=== PATIENT | male | born 1965 | race American Indian/Alaskan Native ===

== ENCOUNTER 2016-12-28 18:30 | Observation (INO) | payer OTHER ==
--- NOTE | ~2016-12-28 | CR72 ---
[facility]. [facility] A Service [facility] RADIOLOGY TEXT RESULTS PATIENT: ALAN GAINES LOCATION: [facility] : 63 UNIT #: [id number] AGE: [address]: Fernando Koch MD SEX: M ORDER DR: [id number] [place] [address] [id number] I MR#: [id number] Acc #: [id number] NAME: ALAN GAINES : 1965 SEX: M STUDY DATE/TIME: 12/28/2016 19:43 UNIT: SEDOF ROOM: [facility] STUDY DESCRIPTION: CR Chest Single View Portable Attending Physician: Fernando Koch M.D. Ordering Physician: Ranjeet Perdue M.D. Primary Care Physician: Primary Care Physician No MEDICAL IMAGING REPORT This report is preliminary unless electronic signature is present. EXAM Frontal chest, 12/28/2016 INDICATION Chest tightness, dizzy, short of air, arm tingling for a week intermittently. TECHNIQUE Frontal chest compared with 08/17/2011 FINDINGS Cardiac silhouette is within normal limits for technique. Aorta mildly tortuous. Vascularity is normal. There is no effusion, dense consolidation or pneumothorax. Calcified granulomas are present. IMPRESSION Mildly tortuous aorta and old healed granulomatous disease. No definite superimposed active disease. Dictated by... Aamir Mccall M.D. THIS IS AN ELECTRONICALLY VERIFIED REPORT Aamir Mccall M.D. at 12/29/2016 11:41 AM FRED/howard TD: 12/28/2016 23:56 JOB #: [id number] MEDICAL IMAGING REPORT [facility] A Service [facility] RADIOLOGY TEXT RESULTS PATIENT: ALAN GAINES LOCATION: [facility] 5611-18 : 63 UNIT #: [id number] AGE: [address]: Fernando Koch MD SEX: M ORDER DR: Page 1 of 1
--- NOTE | ~2016-12-28 | EKG ---
PATIENT: ALAN GAINES UNIT #: [id number] Ventricular Rate: 85 BPM Atrial Rate: 85 BPM P-R Interval: 154 ms QRS Duration: 94 ms Q-T Interval: 382 ms QTC Calculation(Bezet): 454 ms P Newcomb: 71 degrees Calculated R Newcomb: 24 degrees Calculated T Newcomb: 41 degrees Diagnosis Line: Normal sinus rhythm Diagnosis Line: Incomplete right bundle branch block Diagnosis Line: Borderline ECG Diagnosis Line: When compared with ECG of 17-AUG-2011 22:05, Diagnosis Line: No significant change was found Diagnosis Line: Confirmed by DANIEL PANTOJA MD ([id number]) on 12/29/2016 Diagnosis Line: 10:19:19 PM INTERPRETING MD: KIT QUICK
--- NOTE | ~2016-12-28 | EKG ---
PATIENT: ALAN GAINES UNIT #: [id number] Ventricular Rate: 66 BPM Atrial Rate: 66 BPM P-R Interval: 180 ms QRS Duration: 106 ms Q-T Interval: 402 ms QTC Calculation(Bezet): 421 ms P Chili: 75 degrees Calculated R Chili: 30 degrees Calculated T Chili: 62 degrees Diagnosis Line: Sinus rhythm with Premature ventricular complexes Diagnosis Line: or Fusion complexes Diagnosis Line: Otherwise normal ECG Diagnosis Line: No previous ECGs available Diagnosis Line: Confirmed by DANIEL PANTOJA MD ([id number]) on 12/29/2016 Diagnosis Line: 10:31:43 PM INTERPRETING MD: KIT QUICK
--- NOTE | ~2016-12-28 | DS ---
Unit #: [id number] #: [id number] Patient: ALAN HIDALGO [id number] [address] [address] [id number] I MR#: [id number] NAME: ALAN HIDALGO ROOM: 563 Age: 51 Sex: M Admission Date: 12/28/2016 : 1965 Discharge Date: 12/29/2016 Attending Physician: Fernando Koch M.D. Primary Care Physician: No Primary Care Physician DISCHARGE SUMMARY ADMITTING DIAGNOSES 1. Chest pain and dizziness. 2. COPD. 3. Anxiety. 4. Stress related to socioeconomic issues. 5. Frequent kidney stones. DISCHARGE DIAGNOSES 1. Chest pain and dizziness. 2. Chronic obstructive pulmonary disease. 3. Anxiety. 4. Stress related to socioeconomic issues. 5. Frequent kidney stones. DIAGNOSTIC STUDIES IMAGING: Chest x-ray shows mildly tortuous aorta and old healed granulomatous disease with no active acute diseases. CT of the head shows no acute intracranial processes. CARDIOVASCULAR: A Lexiscan Cardiolite stress test has been completed, which will be evaluated prior to discharge. If normal, he will be discharged home; if abnormal, an addendum will be noted to this dictation. EKG shows normal sinus rhythm with an incomplete right bundle branch block. PERTINENT LABS DURING HOSPITALIZATION: Sodium 143, potassium 4.3, glucose 102, BUN 14, creatinine 0.8, magnesium 2. Troponin less than 0.03 and less than 0.05 x2 upon arrival. PT 9.6, INR 0.9. HOSPITAL COURSE Mr. Hidalgo is a 51-year-old male who presented with some tightness across his chest for the last one week intermittently. He has had elevated stress over bills and confrontation at work. He has some dizziness, as well as shortness of breath, nausea and vomiting, with these symptoms. He presented to the hospital and was admitted for cardiac workup. He is completing a two-D echocardiogram and a Cardiolite stress test today, which will be evaluated prior to discharge. If normal, he will be discharged home; if abnormal, an addendum will be noted to this dictation. It is noted that, in August of 2011, he had a normal left heart catheterization with an EF of 55% completed by Dr. Wilfredo Gallo. Prior to his completing his Lexiscan Cardiolite stress test, we did try to Unit #: [id number] #: [id number] Patient: ALAN HIDALGO walk him on the treadmill, and he walked approximately 5 minutes before stopping due to back pain and leg pain. However, he had no chest pain during this time, and he is currently pain free. His blood pressure is 102/68, pulse 69, respirations 18, temperature 98 degrees. DISCHARGE MEDICATIONS Ventolin inhaler p.r.n. q.4 hours. DISCHARGE INSTRUCTIONS 1. Diet: Regular diet. 2. Activity: As tolerated. 3. Next followup visit will be with primary care physician regarding anxiety, insomnia at the next available appointment, and he may follow up with Dr. Sanchez in the next 6 weeks or as needed. ADDENDUM Of note, Dr. Sanchez has just now informed me that his echocardiogram and his Cardiolite stress test are both within normal limits, and his Cardiolite stress test shows no ischemia. He may be discharged home with plans for outpatient follow up. Results will be communicated to the patient prior to discharge today by me. Dictated by... Bonnie Alanis A.P.R.N. for [place]/wendy TD: 12/30/2016 10:55 JOB #: [id number] DISCHARGE SUMMARY Page 1 of 1 X X DISCHARGE SUMMARY
--- NOTE | ~2016-12-28 | CT71 ---
[facility] A Service of [facility] RADIOLOGY TEXT RESULTS PATIENT: ALAN GAINES LOCATION: [facility] 563-01 : [birth year] UNIT #: [id number] AGE: [address]: Fernando Koch MD SEX: M ORDER DR: [id number] [place] [id number] I MR#: [id number] Acc #: [id number] NAME: ALAN GAINES : 1965 SEX: M STUDY DATE/TIME: 12/28/2016 19:40 UNIT: SEDOF ROOM: [id number] STUDY DESCRIPTION: CT Head Wo Contrast Attending Physician: Fernando Koch M.D. Ordering Physician: Ranjeet Perdue M.D. Primary Care Physician: No Primary Care Physician MEDICAL IMAGING REPORT This report is preliminary unless electronic signature is present. EXAM Head CT no contrast, 12/28/2016 INDICATIONS A 51-year-old male with dizziness, shortness of air, chest tightness and arm tingling for a week intermittently. History of COPD. TECHNIQUE This CT exam was performed with one or more of the following radiation dose reduction techniques: automatic exposure control, adjustment of mA and/or kV according to patient size, and iterative reconstruction. Noncontrast CT of the brain was performed. Comparison 09/20/[address] brain: The sulci and ventricles demonstrate chronic-appearing encephalomalacia changes in the inferior aspect of the frontal lobes bilaterally left greater than right. Configuration is unchanged from the prior study for technical factors. Sulci and ventricles are otherwise unremarkable. No midline shift. No evidence of acute intracranial hemorrhage. There is no mass, mass effect or edema to suggest acute infarct and no extraaxial fluid collections are present. Globes are intact. Bones are intact. There is mild right ethmoid sinus disease. IMPRESSION 1. No clearly acute intracranial process. No evidence of acute intracranial hemorrhage. 2. Chronic-appearing encephalomalacia change in the paramedian aspects of the frontal lobes bilaterally left greater than right. This is unchanged. 3. Mild ethmoid sinus disease. [facility] A Service of [facility] RADIOLOGY TEXT RESULTS PATIENT: ALAN GAINES LOCATION: [facility] 563-01 : [birth year] UNIT #: [id number] AGE: [address]: Fernando Koch MD SEX: M ORDER DR: Dictated by... Aamir Mccall M.D. THIS IS AN ELECTRONICALLY VERIFIED REPORT Aamir Mccall M.D. at 12/29/2016 11:40 AM Ralf TD: 12/28/2016 23:44 JOB #: [id number] MEDICAL IMAGING REPORT Page 1 of 1
--- NOTE | ~2016-12-28 | EKG ---
PATIENT: ALAN GAINES UNIT #: [id number] Ventricular Rate: 79 BPM Atrial Rate: 79 BPM P-R Interval: 176 ms QRS Duration: 102 ms Q-T Interval: 384 ms QTC Calculation(Bezet): 440 ms P Lusk: 49 degrees Calculated R Lusk: -13 degrees Calculated T Lusk: 37 degrees Diagnosis Line: Normal sinus rhythm Diagnosis Line: RSR' or QR pattern in V1 suggests right Diagnosis Line: ventricular conduction delay Diagnosis Line: Borderline ECG Diagnosis Line: When compared with ECG of 17-AUG-2011 22:05, Diagnosis Line: No significant change was found Diagnosis Line: Confirmed by GIOVANNA DELVALLE MD ([id number]) on Diagnosis Line: 01/07/2017 7:15:12 AM INTERPRETING ALAN NAJERA
--- NOTE | ~2016-12-28 | HP ---
Unit #: [id number] #: [id number] Patient: ALAN HIDALGO [id number] [place] [address] [facility]. [place], [place] [address] [id number] I MR#: [id number] NAME: ALAN HIDALGO ROOM: 563 Age: 51 Sex: M Admission Date: 12/28/2016 : 1965 Attending Physician: Fernando Koch M.D. Primary Care Physician: No Primary Care Physician HISTORY AND PHYSICAL CHIEF COMPLAINT Chest pain. HISTORY OF PRESENT ILLNESS Mr. Hidalgo is a 51-year-old male who has had intermittent tightness in his chest for 1 week. With rest it will resolve. He states that he has had a lot of increased stress over bills as well as issues at work. He states that the pain is not predictable, but mostly occurs with activity. It is accompanied by some dizziness and some nausea and vomiting as well as unsteadiness and shortness of breath. He states that he has definitely noticed that while mowing the grass or with increased stress; however, with exertion the pain does not always occur. Currently during my interview he states that he is having mild discomfort in his chest, but no associated symptoms. This information is from record review as well as from patient interview. He is accompanied by his fiance and her two children during my interview. PRIOR CARDIAC TESTING HISTORY On 09/01/2011 he had a left heart catheterization which showed left main normal, LAD 10%, left circumflex normal, RCA normal, ejection fraction 55%. This was completed at [facility] with Dr. Wilfredo Gallo. PAST MEDICAL HISTORY 1. Chronic obstructive pulmonary disease for which he uses a Ventolin inhaler as needed. He was prescribed this from the [facility]. 2. Kidney stone with lithotripsy. 3. Recurring kidney stones. 4. Knee surgery. SOCIAL HISTORY The patient is a one qnyd-mmj-kmu smoker since age 7. He denies using alcohol for the last six years. He denies the use of drugs. FAMILY HISTORY Mother with multiple myeloma and palpitations. Father, brothers and sisters history all unknown. ALLERGIES Penicillin. HOME MEDICATIONS Ventolin inhaler 2 puffs q.i.d. p.r.n. REVIEW OF SYSTEMS Unit #: [id number] #: [id number] Patient: ALAN HIDALGO GENERAL: Denies any fever or flu-like symptoms, but has had some increased chills. He states that he has been back to work lately and has lost 20 pounds with increased activity. SKIN: Denies any rashes, ulcerations or wounds, but has a burn on his left forearm. HEADACHES: Increased lately. EYES: Denied any sudden change in vision. EARS: Denied any sudden change in hearing, but does have some ringing in his ears. BLEEDING: Denied epistaxis, hemoptysis or melena, but occasional hematuria with kidney stones. THROAT: Denied any problems swallowing. LUNGS: Denied any wheeze or cough. Positive for shortness of breath. CHEST: Positive for pain. Positive for palpitations or tachycardia with stressful events and positive for PND, but no orthopnea. : Positive for nausea and vomiting. No diarrhea, constipation or change in stool. : No burning or urgency, but does have some pain with urination with kidney stones. EXTREMITIES: No swelling or increased pain with walking, but does have occasional right ankle swelling due to old fracture. NEUROLOGIC: Positive for numbness and tingling of his arms chronically. No seizure, stroke-like symptoms. Positive for dizziness and unsteadiness recently. Positive for fall in the last week, he thought he had gotten up too fast. Positive for insomnia. PHYSICAL EXAMINATION GENERAL: Well-developed, well-nourished white male in no acute distress, resting in the bed. VITALS: Blood pressure 121/85, heart rate 70, respiratory rate 18, temperature 97.4, 96% oxygenated on room air, 155 pounds. SKIN: No obvious rashes or ulcerations noted. HEENT: Eyes, pupils equally round and reactive to light and accommodation. No xanthelasma. Oral, poor dentition. Moist mucous membranes. No pallor. NECK: No carotid bruits auscultated bilaterally. SPINE: No scoliosis or tenderness. CHEST: Clear to auscultation bilaterally. No wheezes, rales or rhonchi. HEART: S1 and S2. No murmur, rub, gallop or lift. ABDOMEN: Soft and nontender. Positive bowel sounds. EXTREMITIES: Bilateral pedal pulses plus 1. No edema. NEUROLOGIC: Alert and oriented times three. Speech is clear. No obvious neurologic deficits. DIAGNOSTIC STUDIES IMAGING: Chest x-ray mildly tortuous aorta and old healed granulomatous disease. No definite superimposed active disease. CT of the head shows no clearly acute intracranial process. No evidence of acute intracranial hemorrhage. Chronic-appearing encephalomalacia change in the paramedian aspects of the frontal lobes bilaterally, left greater than right. This is unchanged. Mild ethmoid sinus disease. LABORATORY: Sodium 143, potassium 4.3, glucose 102, BUN 14, creatinine 0.8, magnesium 2.0. Troponin less than 0.03 times 2. PT 9.6, INR 0.9. Sodium 135, potassium 3.3, BUN 11, creatinine 0.7, AST 17, ALT 12, albumin 4.0, PT 11.5, INR 1.0. Hemoglobin 14.4, hematocrit 43.2, platelets 205, white blood cell count 9.8. Unit #: [id number] #: [id number] Patient: ALAN HIDALGO ASSESSMENT 1. Chest pain and dizziness. 2. Chronic obstructive pulmonary disease. 3. Anxiety. 4. Stress related to socioeconomic issues. 5. Frequent kidney stones. PLAN Mr. Hidalgo will complete a Cardiolite stress test and an echocardiogram today for cardiac workup. Troponin has ruled him out for acute coronary syndrome at this point. He is requesting medication for anxiety as well as a refill on his inhaler. He states that he does not have a primary care physician, so we will ask care management to assist in providing a name for primary care physician with whom he may follow up. Further recommendations will be based on the above mentioned testing. Left heart catheterization, will discharge home if normal with outpatient followup. Dictated by Bonnie Alanis A.P.R.N. for [place] TD: 12/29/2016 11:10 JOB #: [id number] HISTORY AND PHYSICAL Page 1 of 1 X X HISTORY AND PHYSICAL
--- NOTE | ~2016-12-28 | ST ---
Unit #: [id number] #: [id number] Patient: ALAN GAINES [id number] [address] [address] [id number] I MR#: [id number] NAME: ALAN GAINES : 1965 SEX: M STUDY DATE/TIME: 12/29/2016 UNIT: [facility] ROOM: 563 STUDY DESCRIPTION: Cardiac stress test. Attending Physician: Fernando Koch M.D. Primary Care Physician: No Primary Care Physician CARDIOLOGY REPORT EXAM Cardiac stress test. PROCEDURE The patient's baseline heart rate is 69 beats per minute, blood pressure 114/84. The baseline EKG showed normal sinus rhythm. Normal EKG. He received Lexiscan infusion as per protocol. At peak infusion heart rate was 88 beats per minute, blood pressure 115/84. During Lexiscan infusion recovery to further ST-T changes. The patient also received 10.84 mCi of Cardiolite at rest and 27.1 mCi of Cardiolite during stress. Both sets of images were compared. The patient showed fairly uniform uptake of radiotracer. No defect was noted. The patient also had gated SPECT scan done, which showed normal left ventricular size and function. No wall motion abnormality detected. Ejection fraction 52%. INTERPRETATION 1. EKG part of the test is negative for Lexiscan induced ischemia. 2. Nuclear part of the test is negative for myocardial ischemia. 3. Gated SPECT scan shows normal left ventricular size and function. 1. 1. Dictated by... [place] TD: 12/30/2016 09:11 JOB #: [id number] CC: Dane Sanchez M.D. CARDIOLOGY REPORT Page 1 of 1 X Dane Sanchez MD CARDIOLOGY REPORT
[~2016-12-28 18:30] MED LIST: ALBUTEROL17 GM INH; ERYTHROMYCIN; KEFLEX PO; LORTAB 7.5-5001 TAB PO; VICODIN 5/500 T1 TAB PO
[2016-12-28 19:02] LABS: BASOPHIL% 0.2 % (0-2.5); EOSINOPHIL% 0.5 % (0.0-7.0); HEMATOCRIT 43.2 % (38.0-50.0); HEMOGLOBIN 14.4 gm/dL (13.0-16.0); LYMPHOCYTE# 1.8 X10e3 (1.0-3.5); LYMPHOCYTE% 18.2 % (17.0-45.0); MEAN CELL VOLUME 87.3 FL (83-96); MEAN CORPUSCULAR HEMOGLOBIN 29.1 PG (28-34); MEAN CORPUSCULAR HGB CONC 33.3 g/dL (30-36); MEAN PLATELET VOLUME 8.9 FL (6.5-11.5); MONOCYTE# 0.8 X10e3 (0-1.0); NEUTROPHIL# 7.1 X10e3 (1.5-7.1); NEUTROPHIL% 73.1 % (40-75); PLATELET COUNT 205 X10e3 (140-420); RED BLOOD COUNT 4.95 X10e (3.90-5.60); RED CELL DISTRIBUTION WIDTH 13.5 % (11.0-15.5); WHITE BLOOD COUNT 9.8 X10e3 (4.0-10.5)
[2016-12-28 19:06] LABS: PROTHROMBIN TIME (PATIENT) 11.5 SECONDS (9.5-12.4)
[2016-12-28 19:08] LABS: DIFF IND NO
[2016-12-28 19:12] LABS: POC - CKMB <1.0 ng/mL (0.0-7.9); POC - MYOGLOBIN 42.9 ng/mL (0.0-169.0); POC - TROPONIN <0.05 ng/mL (<=0.05)
[2016-12-28 19:14] LABS: PARTIAL THROMBOPLASTIN TIME 27.8 SECONDS (25.6-38.1)
[2016-12-28 19:15] LABS: BILIRUBIN, DIRECT 0.1 mg/dL (0.0-0.2); BILIRUBIN,INDIRECT 0.2 mg/dL (0.0-0.9); BILIRUBIN,TOTAL 0.3 mg/dL (0.2-2.0); BUN/CREATININE RATIO 15.71; CALCIUM SERUM 8.7 mg/dL (8.4-10.2); CREATININE SERUM 0.7 mg/dL (0.6-1.4); GLOM FILT RATE Estimated 108.5 mL/min (>60); POTASSIUM 3.3 mmol/L (3.5-5.1)
[2016-12-28 21:27] LABS: POC - CKMB <1.0 ng/mL (0.0-7.9); POC - TROPONIN <0.05 ng/mL (<=0.05)
[2016-12-29 07:26] LABS: INR 0.9; PARTIAL THROMBOPLASTIN TIME 26.4 SECONDS (23.5-31.3); PROTHROMBIN TIME (PATIENT) 9.6 SECONDS (9.6-11.5)
[2016-12-29 07:50] LABS: BUN/CREATININE RATIO 17.5; CALCIUM SERUM 9.1 mg/dL (8.4-10.2); CREATININE SERUM 0.8 mg/dL (0.6-1.4); GLOM FILT RATE Estimated 102.7 mL/min (>60); POTASSIUM 4.3 mmol/L (3.5-5.1)
[2016-12-29 08:29] LABS: %MB 1.3 % (0.0-4.0); MB 0.8 ng/ml
[2017-01-21] MEDS ORDERED: ANTIDEPRESSANT (11:22)
[2017-02-25] MEDS ORDERED: LORTAB 5-325 M1 EACH PO (11:34)
[2017-02-25] MEDS ORDERED: TRINTELLIX PO (11:35)
[2017-02-25] MEDS ORDERED: CIPROFLOXACIN500 M1 PO (11:36)
[2017-02-25] MEDS ORDERED: ZOFRAN ODT4 M1 SL (11:36)
[2017-02-26] MEDS ORDERED: PERCOCET 5/321 UDTAB PO (07:48)
== END 2016-12-29 16:11 | disposition home or self-care (01) ==
LOC: SED 18:30 → SEDOF 22:23 → C5B 23:42 → C5C 23:53
PROVIDERS: Emergency Medicine
DX: R07.89 Other chest pain (principal); R42 Dizziness and giddiness; J44.9 Chronic obstructive pulmonary disease, unspecified; F41.9 Anxiety disorder, unspecified; F43.9 Reaction to severe stress, unspecified; J84.10 Pulmonary fibrosis, unspecified; I77.1 Stricture of artery; F17.200 Nicotine dependence, unspecified, uncomplicated; J32.2 Chronic ethmoidal sinusitis; G93.89 Other specified disorders of brain; I45.10 Unspecified right bundle-branch block; Z87.442 Personal history of urinary calculi; Z84.89 Family history of other specified conditions; Z79.899 Other long term (current) drug therapy; Z88.0 Allergy status to penicillin
CPT/HCPCS: 36415; 70450; 71010; 78452; 80048; 80076; 82550; 82553; 82947; 83735; 83874; 84484; 85025; 85610; 85730; 93005; 93017; 94760; 99285; A9500; G0378; J2785

== ENCOUNTER 2017-01-21 12:20 | Observation (INO) | payer OTHER ==
--- NOTE | ~2017-01-21 | CT4 ---
[facility] A Service of [facility] RADIOLOGY TEXT RESULTS PATIENT: ALAN GAINES LOCATION: [address] : 63 UNIT #: [id number] AGE: [address]: Edward Mcdonald MD SEX: M ORDER DR: [id number] [place] [address] [id number] MR#: [id number] Acc #: [id number] NAME: ALAN GAINES : 1965 SEX: M STUDY DATE/TIME: 01/21/2017 12:18 UNIT: SED ROOM: STUDY DESCRIPTION: CT Abd and Pelv Wo Cont Attending Physician: Luis Montgomery M.D. Ordering Physician: Luis Montgomery M.D. Primary Care Physician: No Primary Care Physician MEDICAL IMAGING REPORT This report is preliminary unless electronic signature is present. EXAM CT abdomen and pelvis without contrast 01/21/[address] abdomen and pelvis with multiplanar reformats. This CT exam was performed with one or more of the following radiation dose reduction techniques: automatic control, adjustment of mA and/or kV according to patient size, and iterative reconstruction. COMPARISON 10/09/2016 HISTORY Left flank pain since this morning. FINDINGS The lung bases are normal. ABDOMEN: Unenhanced images of the liver and gallbladder and spleen and pancreas are normal. Adrenal glands are normal but there is extensive bilateral nephrolithiasis and there is moderate to marked left hydronephrosis. There are multiple stones in the left ureter just below the ureterovesical junction but no distal ureteral stones are seen on the left and there are no right ureteral stones. On the left the largest distal-most stone measures about 9 mm in craniocaudal dimension. PELVIS: There is no pelvic mass or inflammatory change. The appendix is normal. There is no hernia or bowel obstruction. There is an old healed L1 compression fracture but no acute bony abnormality. [facility] A Service of [facility] RADIOLOGY TEXT RESULTS PATIENT: ALAN GAINES LOCATION: [facility] : 63 UNIT #: [id number] AGE: [address]: Edward Mcdonald MD SEX: M ORDER DR: IMPRESSION Bilateral extensive nephrolithiasis with multiple bilateral renal stones nonobstructing, as well as at least 3 stones in the left upper ureter just past the ureterovesical junction the largest about 9 mm in maximal dimension causing moderate left hydronephrosis. No distal left ureteral stones are seen and there are no right ureteral stones. Otherwise negative. Dictated by... Harvinder Davis M.D. THIS IS AN ELECTRONICALLY VERIFIED REPORT Harvinder Davis M.D. at 01/25/2017 10:35 AM LIZY/yasmin TD: 01/21/2017 13:36 JOB #: [id number] MEDICAL IMAGING REPORT Page 1 of 1
--- NOTE | ~2017-01-21 | OR ---
Unit #: [id number] #: [id number] Patient: ALAN GAINES [id number] [place] [id number] [facility]. [place], [place] [address] [id number] I MR#: [id number] NAME: ALAN GAINES ROOM: 215 Date of Procedure: 01/21/2017 Admission Date: 01/21/2017 Surgeon: Edward Mcdonald M.D. : 1965 Attending Physician: Edward Mcdonald M.D. OPERATIVE REPORT PREOPERATIVE DIAGNOSES Obstructing left ureteral stone with hydronephrosis; multiple large left renal stones. POSTOPERATIVE DIAGNOSES Obstructing left ureteral stone with hydronephrosis; multiple large left renal stones. PROCEDURES PERFORMED Left rigid and flexible ureteroscopy, holmium laser lithotripsy, basket extraction of fragments, placement of internal double-J stent. ANESTHESIA General with local supplementation. INDICATIONS FOR PROCEDURE This 51-year-old man presented with acute left colic due to a 9 x 10 mm stone obstructing the left ureter and multiple bilateral stones are seen. DESCRIPTION OF PROCEDURE The patient was given satisfactory general anesthesia and positioned in dorsal lithotomy. He had been given Levaquin prior to transfer from [facility]. The genitalia were prepped and draped. The 21-Kiswahili rigid cystoscope would not pass easily without dilating the meatus to 24-Kiswahili with Shandaken sounds. The cystoscope was then passed noting no abnormalities of the urethra or prostate. The bladder was entered and appeared normal. The left ureteral orifice was entered with a Pollack catheter, which passed up fluoroscopically to the proximal ureteral stone, but would not pass by it. A Sensor guidewire passed by it, but again the Pollack catheter would not pass. It was thus thought necessary to perform rigid ureteroscopy to unblock the ureter. The ureter was dilated with Lubriglide sizes 6, 8, 10, and 12 without difficulty. A rigid ureteroscope was passed up over a second guidewire and the ureter was somewhat torturous, but the stone easily reached. It was treated with the 200 nanometer laser fiber anticipating further progression into the kidney with this fiber. It was markedly hard stone and the ultimate energy used was 1.5 power. This delivered the maximum energy at a rate of less than 10 per second. It was applied to the stone chipping it into small and medium fragments, one of which was basketed out for specimen. The ureter was noted to be inflamed at this location, but was otherwise not injured. A 36 cm 11 x 14 ureteral access sheath was advanced and ultimately due to its tendency to back out, it was replaced with a 46 cm sheath. Flexible ureteroscopy first encountered smaller amount of hard stone in the upper Unit #: [id number] #: [id number] Patient: ALAN GAINES, which was lasered to completion. Even, this took a significant period of time due to how hard the stone was, but it was a small portion of the stone burden. Lateral stones were likewise treated. The main body of stone laid in the lower pole which was difficult to reach, but was accessed. A prolonged effort of over 1 hour on this stone was only partially successful. After 90 minutes of lasering and a total power of 26 kilo joules with bleeding from several areas and sense of swelling and an additional procedure being inevitable. At this point, I placed a 26 x 5 double-J stent internally in excellent position. The bladder was drained and the cystoscope removed and a Uro-jet was applied to complete the procedure. At this point, ESWL is likely the next best option. Dictated by... Edward Mcdonald M.D. DRE/prakash TD: 01/22/2017 01:05 JOB #: [id number] OPERATIVE REPORT Page 1 of 1 X Edward Mcdonald MD PROCEDURE OPERATIVE NOTE
[2017-01-21 12:10] LABS: BASOPHIL# 0.1 X10e3 (0-0.3); BASOPHIL% 0.7 % (0-2.5); EOSINOPHIL# 0.2 X10e3 (0-0.7); EOSINOPHIL% 1.3 % (0.0-7.0); HEMATOCRIT 47.3 % (38.0-50.0); HEMOGLOBIN 15.2 gm/dL (13.0-16.0); LYMPHOCYTE# 1.5 X10e3 (1.0-3.5); LYMPHOCYTE% 12.2 % (17.0-45.0); MEAN CELL VOLUME 88.1 FL (83-96); MEAN CORPUSCULAR HEMOGLOBIN 28.3 PG (28-34); MEAN CORPUSCULAR HGB CONC 32.1 g/dL (30-36); MEAN PLATELET VOLUME 9.1 FL (6.5-11.5); MONOCYTE% 8.5 % (3.0-12.0); NEUTROPHIL# 9.5 X10e3 (1.5-7.1); NEUTROPHIL% 77.3 % (40-75); PLATELET COUNT 213 X10e3 (140-420); RED BLOOD COUNT 5.37 X10e (3.90-5.60); RED CELL DISTRIBUTION WIDTH 13.6 % (11.0-15.5); WHITE BLOOD COUNT 12.3 X10e3 (4.0-10.5)
[2017-01-21 12:11] LABS: DIFF IND NO
[~2017-01-21 12:20] MED LIST changes: +ANTIDEPRESSANT
[2017-01-21 12:23] LABS: ALBUMIN SERUM 3.9 g/dL (3.5-5.0); BILIRUBIN, DIRECT 0.1 mg/dL (0.0-0.2); BILIRUBIN,INDIRECT 0.6 mg/dL (0.0-0.9); BILIRUBIN,TOTAL 0.7 mg/dL (0.2-2.0); BUN/CREATININE RATIO 17.77; CALCIUM SERUM 8.8 mg/dL (8.4-10.2); CREATININE SERUM 0.9 mg/dL (0.6-1.4); GLOM FILT RATE Estimated 97.9 mL/min (>60); POTASSIUM 3.4 mmol/L (3.5-5.1); PROTEIN TOTAL SERUM 6.9 g/dL (6.0-8.3)
[2017-01-21 12:31] LABS: URINE APPEARANCE CLEAR; URINE BILIRUBIN NEG (NEG); URINE BLOOD 3+ (NEG); URINE COLOR YELLOW; URINE GLUCOSE NEG (NORM); URINE KETONE NEG (NEG); URINE LEUKOCYTE ESTERASE 1+ (NEG); URINE NITRATE NEG (NEG); URINE PH 7.5 (5-8); URINE PROTEIN NEG (NEG); URINE UROBILINOGEN 0.2 MG/DL (NORM)
[2017-01-21 12:32] LABS: MICRO INDICATED? YES; URINE SOURCE CLEAN CATCH
[2017-01-21 12:45] LABS: CULTURE INDICATED? YES; URINE BACTERIA 1+ (NEG); URINE RBC 25-50 /[HPF] (0-2); URINE SQUAMOUS EPITHELIAL CELL FEW /[HPF]; URINE TRANSITIONAL EPI CELLS FEW /[HPF]
[2017-01-21 12:46] LABS: URINE AMORPHOUS SEDIMENT AMORP URATES; URINE MUCUS PRESENT
[2017-01-21] MEDS ORDERED: LORTAB 7.5-3251 EACH PO (23:55)
[2017-02-25] MEDS ORDERED: LORTAB 5-325 M1 EACH PO (11:34)
[2017-02-25] MEDS ORDERED: TRINTELLIX PO (11:35)
[2017-02-25] MEDS ORDERED: CIPROFLOXACIN500 M1 PO (11:36)
[2017-02-25] MEDS ORDERED: ZOFRAN ODT4 M1 SL (11:36)
[2017-02-26] MEDS ORDERED: PERCOCET 5/321 UDTAB PO (07:48)
== END 2017-01-22 00:10 | disposition home or self-care (01) ==
LOC: SED 12:20 → SEDOF 13:25 → C2A 17:00
PROVIDERS: Emergency Medicine; Urology
DX: N13.2 Hydronephrosis with renal and ureteral calculous obstruction (principal); Z87.442 Personal history of urinary calculi; J44.9 Chronic obstructive pulmonary disease, unspecified; M19.90 Unspecified osteoarthritis, unspecified site
CPT/HCPCS: 36415; 74176; 80048; 80076; 81003; 82365; 83690; 85025; 87086; 88300; 96365; 96366; 96374; 96375; 99285; C1758; C2617; G0378; J1170; J1885; J1956; J2175; J2250; J2405; J3010

== ENCOUNTER 2017-02-24 09:36 | Emergency (ER) | payer OTHER ==
--- NOTE | ~2017-02-24 | US115 ---
[facility] A Service of [facility] RADIOLOGY TEXT RESULTS PATIENT: ALAN GAINES LOCATION: [facility] : 63 UNIT #: [id number] AGE: [address]: Saurabh Mustafa DO SEX: M ORDER DR: [id number] [facility] [address] [place], [place] [address] [id number] E MR#: [id number] Acc #: [id number] NAME: ALAN GAINES : 1965 SEX: M STUDY DATE/TIME: 02/24/2017 10:56 UNIT: [facility] ROOM: STUDY DESCRIPTION: US Scrotum and Contents Attending Physician: Saurabh Mustafa D.O. Ordering Physician: Saurabh Mustafa D.O. Primary Care Physician: Tr Bermeo M.D. MEDICAL IMAGING REPORT This report is preliminary unless electronic signature is present EXAMINATION Bilateral scrotal ultrasound with Doppler imaging. DATE 02/24/2017 at 10:56 HISTORY Renal stones with stents 4 weeks ago. Scrotal pain for 1 day. Passed stones this morning. COMPARISON CT abdomen and pelvis without contrast 01/21/2017. No previous scrotal ultrasound at this institution for comparison. FINDINGS The right testicle measures 3.0 x 2.4 x 4.7 cm. The left testicle measures 3.6 x 3.0 x approximately 4.8 cm. Both testicles demonstrate normal homogeneous echotexture without focal or suspicious abnormality. Both testicles demonstrate normal color and spectral Doppler flow. The epididymi are within normal limits. No scrotal hydrocele or varicocele is identified. IMPRESSION 1. Normal bilateral scrotal ultrasound. Normal flow to each testicle. Dictated by... Phyllis Burgos M.D. THIS IS AN ELECTRONICALLY VERIFIED REPORT Phyllis Burgos M.D. at 02/24/2017 5:28 PM CONCETTA/yasmin TD: 02/24/2017 12:25 [facility] A Service of [facility] RADIOLOGY TEXT RESULTS PATIENT: ALAN GAINES LOCATION: [facility] : 63 UNIT #: [id number] AGE: [address]: Saurabh Mustafa DO SEX: M ORDER DR: RONEY #: [id number] MEDICAL IMAGING REPORT Page 1 of 1 COPY
--- NOTE | ~2017-02-24 | CT4 ---
[facility] A Service of [facility] RADIOLOGY TEXT RESULTS PATIENT: ALAN GAINES LOCATION: [facility] : 63 UNIT #: [id number] AGE: [address]: Saurabh Mustafa DO SEX: M ORDER DR: [id number] [facility] [address] [place], [place] [address] [id number] E MR#: [id number] Acc #: [id number] NAME: ALAN GAINES : 1965 SEX: M STUDY DATE/TIME: 02/24/2017 11:24 UNIT: [facility] ROOM: STUDY DESCRIPTION: CT Abd and Pelv Wo Cont Attending Physician: Saurabh Mustafa D.O. Ordering Physician: Saurabh Mustafa D.O. Primary Care Physician: Tr Bermeo M.D. MEDICAL IMAGING REPORT This report is preliminary unless electronic signature is present EXAM CT abdomen and pelvis without contrast. DATE 02/24/2017 HISTORY Bilateral flank pain and hematuria, onset of symptoms 2 months ago. History of kidney stones. Left side abdominal pain worse currently. COMPARISON CT abdomen and pelvis without contrast, 01/21/2017. PROCEDURE 3 mm noncontrast axial images through the abdomen and pelvis. Enteric contrast not administered. Sagittal coronal reformatted images were obtained. This CT exam was performed with one or more of the following radiation dose reduction techniques: automatic exposure control, adjustment of mA and/or kV according to patient size, and iterative reconstruction. FINDINGS ABDOMEN FINDINGS: Left ureteral stent is in place. The stent appears appropriately positioned, extending from the renal pelvis into the urinary bladder. There are numerous tiny stones thought to lie along the course of the proximal to mid third of the left ureter, best depicted on coronal reformatted images, with on of the largest near the left ureteropelvic junction measuring up to 6 mm in length. No definite stones are seen within the distal left ureter, and no stones are seen within the urinary bladder. There is mild left hydronephrosis and left perinephric [facility] A Service [facility] [place] [facility] RADIOLOGY TEXT RESULTS PATIENT: ALAN GAINES [id number] : 63 UNIT #: [id number] AGE: [address]: Saurabh Mustafa DO SEX: M ORDER DR: светлана. Extensive bilateral nephrolithiasis is present, with greatest calcification in the left lower renal pole wild measuring nearly 2.7 x 2.0 cm in the axial plane. Largest aggregate stones in the right lower renal pole measures nearly 1.5 x 1.4 cm. Lung bases are free of consolidation. Heart size is normal. Liver, gallbladder, spleen, pancreas, right adrenal gland is normal. A 1.6 x 1.2 cm left adrenal nodule is seen. It is slightly more dense than expected for an adenoma (Hounsfield units 14.5), but it may represent a benign, lipid poor adenoma. It is unchanged. There is a tiny supraumbilical ventral hernia containing only omental fat. Unopacified bowel appears within normal limits and the appendix is normal. PELVIS FINDINGS: Not mentioned above, there may be a tiny stone dependently within the urinary bladder. Urinary bladder does not appear thickened or inflamed or significantly distended. Prostate and rectum are within normal limits. Chronic-appearing compression fracture of the superior endplate of L1. No acute osseous abnormalities are identified. IMPRESSION 1. Extensive bilateral nephrolithiasis. 2. There are multiple stones within the proximal to mid left ureter surrounding the patient's left ureteral stent. This results in mild left hydronephrosis and hydroureter. 3. Left ureteral stent appears appropriately positioned. 4. Tiny stone dependently within the urinary bladder. 5. 1.6 x 1.2 cm left adrenal nodule. It is indeterminate. Benign etiology such as a lipid poor adenoma is favored. This can be further evaluated with CT or MRI abdomen without and with contrast adrenal imaging protocol on a nonemergent basis if it would aid in this patient's clinical management. 6. Chronic L1 compression fracture. 7. Tiny supraumbilical midline ventral hernia containing only fat. Dictated by... Phyllis Burgos M.D. THIS IS AN ELECTRONICALLY VERIFIED REPORT Phyllis Burgos M.D. at 02/24/2017 5:28 PM LEOLA/pauline TD: 02/24/2017 13:43 JOB #: [id number] [facility] A Service of [facility] RADIOLOGY TEXT RESULTS PATIENT: ALAN GAINES [id number] : 63 UNIT #: [id number] AGE: [address]: Saurabh Mustafa DO SEX: M ORDER DR: MEDICAL IMAGING REPORT Page 1 of 1 COPY
[~2017-02-24 09:36] MED LIST changes: +LORTAB 7.5-3251 EACH PO
[2017-02-24 10:15] LABS: URINE SOURCE CLEAN CATCH
[2017-02-24 10:21] LABS: BASOPHIL% 0.5 % (0-2.5); EOSINOPHIL# 0.2 X10e3 (0-0.7); EOSINOPHIL% 1.7 % (0.0-7.0); HEMATOCRIT 43.8 % (38.0-50.0); HEMOGLOBIN 14.5 gm/dL (13.0-16.0); LYMPHOCYTE# 1.8 X10e3 (1.0-3.5); LYMPHOCYTE% 20.1 % (17.0-45.0); MEAN CELL VOLUME 86.8 FL (83-96); MEAN CORPUSCULAR HEMOGLOBIN 28.8 PG (28-34); MEAN CORPUSCULAR HGB CONC 33.2 g/dL (30-36); MEAN PLATELET VOLUME 8.9 FL (6.5-11.5); MONOCYTE# 0.5 X10e3 (0-1.0); MONOCYTE% 5.9 % (3.0-12.0); NEUTROPHIL# 6.5 X10e3 (1.5-7.1); NEUTROPHIL% 71.8 % (40-75); PLATELET COUNT 237 X10e3 (140-420); RED BLOOD COUNT 5.05 X10e (3.90-5.60); RED CELL DISTRIBUTION WIDTH 13.9 % (11.0-15.5); WHITE BLOOD COUNT 9.1 X10e3 (4.0-10.5)
[2017-02-24 10:26] LABS: URINE APPEARANCE CLEAR; URINE BILIRUBIN NEG (NEG); URINE BLOOD 3+ (NEG); URINE COLOR YELLOW; URINE GLUCOSE NEG (NEG); URINE KETONE NEG (NEG); URINE LEUKOCYTE ESTERASE 2+ (NEG); URINE NITRATE NEG (NEG); URINE PH 6.5 (5-8); URINE PROTEIN 1+ (NEG); URINE SPECIFIC GRAVITY 1.006 (1.003-1.035); URINE UROBILINOGEN 0.2 MG/DL (NEG)
[2017-02-24 10:27] LABS: DIFF IND NO
[2017-02-24 10:29] LABS: CULTURE INDICATED? YES; URINE BACTERIA AUWI NEG (NEGATIVE); URINE SQUAMOUS EPITHELIAL CELL OCC /[HPF]
[2017-02-24 11:10] LABS: ALBUMIN SERUM 4.2 g/dL (3.5-5.0); BILIRUBIN, DIRECT 0.1 mg/dL (0.0-0.2); BILIRUBIN,INDIRECT 0.9 mg/dL (0.0-0.9); BUN/CREATININE RATIO 18.57; CALCIUM SERUM 9.2 mg/dL (8.4-10.2); CREATININE SERUM 0.7 mg/dL (0.6-1.4); GLOM FILT RATE Estimated 108.5 mL/min (>60); POTASSIUM 3.8 mmol/L (3.5-5.1); PROTEIN TOTAL SERUM 7.2 g/dL (6.0-8.3)
[2017-02-25] MEDS ORDERED: LORTAB 5-325 M1 EACH PO (11:34)
[2017-02-25] MEDS ORDERED: TRINTELLIX PO (11:35)
[2017-02-25] MEDS ORDERED: ZOFRAN ODT4 M1 SL (11:36)
[2017-02-25] MEDS ORDERED: CIPROFLOXACIN500 M1 PO (11:36)
[2017-02-26] MEDS ORDERED: PERCOCET 5/321 UDTAB PO (07:48)
== END 2017-02-24 14:23 | disposition home or self-care (01) ==
LOC: CED 09:36
PROVIDERS: Emergency Medicine
DX: N13.2 Hydronephrosis with renal and ureteral calculous obstruction (principal); J44.9 Chronic obstructive pulmonary disease, unspecified; F41.9 Anxiety disorder, unspecified; F17.200 Nicotine dependence, unspecified, uncomplicated; Z88.0 Allergy status to penicillin; Z79.899 Other long term (current) drug therapy
CPT/HCPCS: 36415; 74176; 76870; 80048; 80076; 81003; 83690; 85025; 87086; 93976; 96374; 99284; J1885

== ENCOUNTER → 2017-02-26 | Day surgery (SDC) | payer OTHER ==
[~2017-02-26] MED LIST changes: +CIPROFLOXACIN500 M1 PO; +LORTAB 5-325 M1 EACH PO; +PERCOCET 5/321 UDTAB PO; +TRINTELLIX PO; +ZOFRAN ODT4 M1 SL
--- NOTE | ~2017-02-26 | OR ---
Unit #: [id number] #: [id number] Patient: ALAN GAINES [id number] [address] [place], [place] [address] [id number] O MR#: [id number] NAME: ALAN GAINES. ROOM: Date of Procedure: 02/26/2017 Admission Date: 02/26/2017 Surgeon: Edward Mcdonald M.D. : 1965 Attending Physician: Edward Mcdonald M.D. Primary Care Physician: Tr Bermeo M.D. OPERATIVE REPORT PREOPERATIVE DIAGNOSES Left ureteral and renal calculi and indwelling stent. POSTOPERATIVE DIAGNOSES Left ureteral and renal calculi and indwelling stent, extensive still. PROCEDURES PERFORMED Cystoscopy, left rigid and flexible ureteroscopy, laser lithotripsy of ureteral and renal calculi, stent exchange. ANESTHESIA General with local supplementation. INDICATIONS FOR PROCEDURE This patient who presented with a large upper ureteral stone, treated emergently with stent placement and initial treatment of a large left renal stone volume, subsequently underwent a radiographically ineffective extracorporeal shock wave lithotripsy, although, he has subsequently past numerous small pieces. He presents today for additional treatment and hopefully a final procedure. DESCRIPTION OF PROCEDURE The patient was given preoperative antibiotics. Satisfactory general anesthesia noting a recent urine culture to have been no growth. He was positioned in dorsal lithotomy and the genitalia prepped and draped. Once again, the navicular fossa was somewhat narrowed and was gently dilated with a 24 male sound to allow placement of the 22-Polish cystoscope. The distal stent curl was in good position without calcification. It was extracted out the meatus with a grasper and a sensor guidewire passed up through it. Along the sensor guidewire, I passed a rigid ureteroscope easily to the upper ureter, but was not comfortable advancing it far enough to treat the numerous medium size fragments that stuck there as seen fluoroscopically. I then advanced the flexible ureteroscope over a second guidewire and lasered these with a 200 nanometer laser fiber at settings of 8 and 0.8 being gentle within the ureter. Debris was then washed up into the kidney. Having cleared the ureter, I then placed a 24 cm ureteral access sheath and used that to perform flexible ureteroscopy elsewhere in the kidney. The upper pole remained free of stones largely as it had been previously treated. The mid lateral calyx containing significant stone was also developing some encasement. Numerous partially broken and a moderate-sized stones were lasered extensively with the 365 nanometer laser fiber at settings of 10 and 1.5. After evacuating this, I Unit #: [id number] #: [id number] Patient: ALAN GAINES entered the lower pole where the angle was poor, but I was able to manipulate the largest fragment out of the lower pole to the mid calyx, where it was treated extensively and tediously for about half an hour to break it down well. Returning to the lower pole with baskets was not productive. Use of the 200 nanometer laser fiber; however, did allow breakage of numerous medium size stones and it appeared at the completion of the procedure that there were no significant fragments remaining, although, still a moderate bulk of well broken down stone. I decided to leave the final stent indwelling and placed an identical 26 x 5 double-J stent. The bladder was drained. The cystoscope removed and a Uro-jet applied. We will see the patient back in 1 week with a KUB to decide on final management of the stent depending on the clearance of the stone. Dictated by... Parker Quan/prakash TD: 02/26/2017 23:48 JOB #: [id number] OPERATIVE REPORT Page 1 of 1 X Edward Mcdonald MD X PROCEDURE OPERATIVE NOTE
== END | disposition home or self-care (01) ==
LOC: CSUR 07:17
DX: N20.2 Calculus of kidney with calculus of ureter (principal); J44.9 Chronic obstructive pulmonary disease, unspecified; F32.9 Major depressive disorder, single episode, unspecified; F17.210 Nicotine dependence, cigarettes, uncomplicated; Z87.442 Personal history of urinary calculi; Z98.890 Other specified postprocedural states; Z79.2 Long term (current) use of antibiotics; Z79.899 Other long term (current) drug therapy; Z88.0 Allergy status to penicillin
CPT/HCPCS: C1758; C2617; J1100; J1170; J1956; J2250; J2405

== ENCOUNTER → 2017-03-04 | Outpatient (CLI) | payer OTHER ==
--- NOTE | ~2017-03-04 | CR7 ---
[facility] A Service of [facility] RADIOLOGY TEXT RESULTS PATIENT: ALAN GAINES LOCATION: [facility] : 63 UNIT #: [id number] AGE: [address]: Edward Mcdonald MD SEX: M ORDER DR: [id number] [facility] [address] [place], [place] [address] [id number] O MR#: [id number] Acc #: [id number] NAME: ALAN GAINES : 1965 SEX: M STUDY DATE/TIME: 03/04/2017 11:22 UNIT: [facility] ROOM: STUDY DESCRIPTION: CR Abdomen Single AP View Attending Physician: Edward Mcdonald M.D. Referring Physician: Edward Mcdonald M.D. Ordering Physician: Edward Mcdonald M.D. Primary Care Physician: Tr Bermeo M.D. MEDICAL IMAGING REPORT This report is preliminary unless electronic signature is present EXAM AP abdomen, 03/04/2017 HISTORY Left flank pain. Bilateral renal stones. Status post left side stent placement week ago. Symptoms began [address] abdomen and pelvis, 02/24/2017. FINDINGS Extensive bilateral renal calyceal calcifications are present, greatest preponderance within the lower renal poles, left greater than right. A "street of stones" appearance is demonstrated within the proximal third the left ureter, extending nearly 5.7 cm in length. Left ureteral double-J stent appears appropriately positioned. No right ureteral calculus is identified. Chronic L1 compression deformity redemonstrated. Nonobstructive bowel gas pattern. IMPRESSION 1. "Street of stones" appearance in the proximal third of the left ureter extending nearly 5.7 cm. Left ureteral stent appears appropriately positioned. 2. Extensive bilateral coarse renal calyceal stones, left greater than right. Dictated by... Phyllis Burgos M.D. [facility] A Service of [facility] RADIOLOGY TEXT RESULTS PATIENT: ALAN GAINES LOCATION: [facility] : 63 UNIT #: [id number] AGE: [address]: Edward Mcdonald MD SEX: M ORDER DR: THIS IS AN ELECTRONICALLY VERIFIED REPORT Phyllis Burgos M.D. at 03/05/2017 6:13 AM Kurt TD: 03/04/2017 17:23 JOB #: [id number] MEDICAL IMAGING REPORT Page 1 of 1 COPY
== END | disposition home or self-care (01) ==
LOC: CRAD 10:39
DX: N20.0 Calculus of kidney (principal); Z98.890 Other specified postprocedural states
CPT/HCPCS: 74000

== ENCOUNTER → 2017-03-26 | Day surgery (SDC) | payer OTHER | END | disposition home or self-care (01) | LOC: CSUR 12:31 | DX: N20.0 Calculus of kidney (principal); Z53.8 Procedure and treatment not carried out for other reasons ==

== ENCOUNTER → 2017-04-02 | Day surgery (SDC) | payer OTHER ==
--- NOTE | ~2017-04-02 | OR ---
Unit #: [id number] #: [id number] Patient: ALAN GAINES JR [id number] [place], [place] [address] [id number] O MR#: [id number] NAME: ALAN GAINES JR ROOM: Date of Procedure: 04/02/2017 Admission Date: 04/02/2017 Surgeon: Edward Mcdonald M.D. : 1965 Attending Physician: Edward Mcdonald M.D. Referring Physician: Edward Mcdonald M.D. Primary Care Physician: Tr Bermeo M.D. OPERATIVE REPORT PREOPERATIVE DIAGNOSIS Left renal calculi. POSTOPERATIVE DIAGNOSES Left renal calculi and ureteral Steinstrasse. PROCEDURES PERFORMED Cystoscopy and left rigid and flexible ureteroscopy with extensive basket extraction of innumerable left renal stones. ANESTHESIA General. INDICATIONS FOR PROCEDURE This patient has had multiple surgeries for his massive stone on the left side, presenting with ureteral obstruction and infection. The most recent procedure appeared to eliminate all significant sized stones with laser, but there is poor access to some of the lower pole and stone volume has not cleared to a degree for simple stent removal. DESCRIPTION OF PROCEDURE The patient was given preoperative antibiotics and satisfactory general anesthesia. He was positioned in dorsal lithotomy. The previously noted narrow urethra was dilated gently to 24-Cymro to allow atraumatic placement of the 22-Cymro rigid cystoscope. The distal stent curl was calcified and grasped and extracted after noting no important changes in the bladder. The distal stent curl was amputated and a Sensor guidewire passed up through the stent, which came out fairly easily. I attempted to pass a 14-Cymro dilating sheath, but found narrowing at the pelvic brim. Likewise, the 13-Cymro sheath did also. I thus passed the rigid ureteroscope over a second guidewire finding that there was a Steinstrasse just overlying the entire bony portion of the pelvis and thus not readily visible on fluoroscopy. Over one-half an hour was spent basket and irrigate extracting dozens of small and medium sized stones in the 3 to 4 mm range. There was a significant papillary change in the ureter from the irritation of this, but no bleeding. The rigid scope would not pass much further than the pelvic brim. So, after it was cleared at this level, the short access sheath was placed and the flexible scope used to basket extract additional fragments. When the ureter was finally cleared over a second guidewire, the larger long access sheath was passed. The second portion of the procedure then included extensive renoscopy with basket extraction of numerous fragments from the upper pole and a number from the Unit #: [id number] #: [id number] Patient: ALAN GAINES JR lower pole, although much of it remains inaccessible. Vigorous irrigating to briefly see the fragments beyond reach again showed no clear significant fragments. When maximal benefit had been achieved today, the devices were all removed with no stent replacement. Numerous stone fragments were cleared from the bladder. The cystoscope was removed and a Uro-jet was applied. The patient will be seen in followup in 1 month with a renal ultrasound and KUB. He still has some bilateral stone burden and an untreated right side, albeit with less stone. Dictated by... Parker Quan/prakash TD: 04/03/2017 15:34 JOB #: [id number] OPERATIVE REPORT Page 1 of 1 X Edward Mcdonald MD X PROCEDURE OPERATIVE NOTE
== END | disposition home or self-care (01) ==
LOC: CSUR 12:29
DX: N20.2 Calculus of kidney with calculus of ureter (principal); J44.9 Chronic obstructive pulmonary disease, unspecified; F17.200 Nicotine dependence, unspecified, uncomplicated
CPT/HCPCS: C1758; J2250; J3010; J3370

== ENCOUNTER → 2017-04-28 | Outpatient (CLI) | payer OTHER ==
--- NOTE | ~2017-04-28 | CR7 ---
[facility] A Service of [facility] RADIOLOGY TEXT RESULTS PATIENT: ALAN GAINES JR LOCATION: [facility] : 63 UNIT #: [id number] AGE: [address]: Edward Mcdonald MD SEX: M ORDER DR: [id number] [facility] [address] [place], [place] [address] [id number] O MR#: [id number] Acc #: [id number] NAME: ALAN GAINES : 1965 SEX: M STUDY DATE/TIME: 04/28/2017 13:32 UNIT: US ROOM: STUDY DESCRIPTION: CR Abdomen Single AP View Attending Physician: Edward Mcdonald M.D. Referring Physician: Edward Mcdonald M.D. Ordering Physician: Edward Mcdonald M.D. Primary Care Physician: Tr Bermeo M.D. MEDICAL IMAGING REPORT This report is preliminary unless electronic signature is present EXAM Abdomen 1 view 04/28/2017 1332 hours. HISTORY 51-year-old man with history of kidney stones complaining of bilateral flank pain since last night. COMPARISON 03/04/2017 FINDINGS Supine view of the abdomen and pelvis demonstrates interval removal of left-sided ureteral double-J stent. There are innumerable stones over the lower and mid right kidney and upper mid and lower left kidney with overall slight decrease in stone burden. The steinstrasse of stones in the left mid ureter seen on 03/04/2017 is no longer seen. No definite ureteral calculus is seen. IMPRESSION Innumerable stones over the lower poles of both kidneys and over the mid and upper pole left kidney similar to but decreased from 03/04/2017. Interval removal of left ureteral double-J stent and removal of the collection of stones forming steinstrasse of stones in the left mid ureter on 03/04/2017. No definite ureteral calculi are seen. Dictated by... Salma Guzman M.D. THIS IS AN ELECTRONICALLY VERIFIED REPORT Salma Guzman M.D. at 04/29/2017 9:08 AM JUDD/jodi TD: 04/29/2017 08:48 [facility] A Service of [facility] RADIOLOGY TEXT RESULTS PATIENT: ALAN GAINES JR LOCATION: [facility] : 63 UNIT #: [id number] AGE: [address]: Edward Mcdonald MD SEX: M ORDER DR: JOB #: [id number] MEDICAL IMAGING REPORT Page 1 of 1 COPY
--- NOTE | ~2017-04-28 | US77 ---
[facility] A Service of [facility] RADIOLOGY TEXT RESULTS PATIENT: ALAN GAINES JR LOCATION: [facility] : 63 UNIT #: [id number] AGE: [address]: Edward Mcdonald MD SEX: M ORDER DR: [id number] [facility] [address] [place], [place] [address] [id number] O MR#: [id number] Acc #: [id number] NAME: ALAN GAINES : 1965 SEX: M STUDY DATE/TIME: 04/28/2017 14:23 UNIT: [facility] ROOM: STUDY DESCRIPTION: US Kidney Bilateral Complete Attending Physician: Edward Mcdonald M.D. Referring Physician: Edward Mcdonald M.D. Ordering Physician: Edward Mcdonald M.D. Primary Care Physician: Tr Bermeo M.D. MEDICAL IMAGING REPORT This report is preliminary unless electronic signature is present EXAM Renal ultrasound 04/28/2017. HISTORY Left flank pain for 1 day. History of renal stones and multiple prior lithotripsy most recent 1 month ago. FINDINGS The right kidney measured 11.6 cm while the left kidney measured 11.9 cm in longitudinal dimensions. There is no evidence of hydronephrosis. There are multiple nonobstructing renal stones bilaterally. No cystic or solid mass lesions were seen on either kidney. There is normal renal cortical echogenicity. Images of the bladder are normal. IMPRESSION 1. Nonobstructing renal stones bilaterally. Otherwise negative renal ultrasound. 2. Images of the bladder are normal. Dictated by... Ryder Blanton M.D. THIS IS AN ELECTRONICALLY VERIFIED REPORT Ryder Blanton M.D. at 04/29/2017 10:21 AM KRT/jodi TD: 04/29/2017 06:15 JOB #: [id number] MEDICAL IMAGING REPORT Page 1 of 1 COPY
== END | disposition home or self-care (01) ==
LOC: CGUS 13:17
DX: N20.0 Calculus of kidney (principal); Z98.890 Other specified postprocedural states
CPT/HCPCS: 74000; 76770